=== PATIENT | female | born 1990 ===

== ENCOUNTER 2017-01-14 17:40 | Emergency (ER) | payer MEDICAID ==
[2017-01-14 17:40] VITALS: BMI 24.2
[2017-01-14 17:55] VITALS: BP 125/85; PULSE 86; RESP 16; TEMP 97.5; O2SAT 98
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
== END 2017-01-14 18:31 | disposition home or self-care (01) ==
LOC: ED 17:40
DX: L25.9 Unspecified contact dermatitis, unspecified cause (principal)
CPT/HCPCS: 96372; 99282; J1100

== ENCOUNTER 2017-06-12 21:06 | Emergency (ER) | payer MEDICAID, OTHER ==
[2017-06-12 21:08] VITALS: BMI 24.2
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
[2017-06-12 21:27] VITALS: BP 111/78; PULSE 77; RESP 16; TEMP 98.7; O2SAT 99
== END 2017-06-12 22:05 | disposition home or self-care (01) ==
LOC: ED 21:06
DX: S13.4XXA Sprain of ligaments of cervical spine, initial encounter (principal); V49.49XA Driver injured in collision with other motor vehicles in traffic accident, initial encounter; Y92.410 Unspecified street and highway as the place of occurrence of the external cause
CPT/HCPCS: 96372; 99284; J1885